=== PATIENT | female | born 1965 | race Caucasian/White ===

== ENCOUNTER 2017-07-08 23:46 | Emergency (ER) | payer SELFPAY ==
--- NOTE | 2017-07-09 00:43 | EDM.PDOC ---
ED HPI GENERAL MEDICAL PROBLEM - General Stated Complaint: EYE PROBLEM Time Seen by Provider: 07/08/17 23:48 Source of Information: Reports: Patient History Limitations: Reports: No Limitations - History of Present Illness INITIAL COMMENTS - FREE TEXT/NARRATIVE: Patient is a 52 year old woman who had her eye scratched by her pet housecat right before she came into the ED. The pain is at a 7/10 if she opens the eye and light makes the pain worse. If she closes the eye the pain goes down to 4/ 10. No other complaints. Onset: Today Onset Date: 07/08/17 Onset Time: 23:00 Duration: Minutes: (40) Location: Reports: Other (Left eye) Quality: Reports: Sharp Severity: Severe Improves with: Reports: Other (Closing eye and being in a dark place.) Worsens with: Reports: Other (Opening eye and light) Context: Reports: Trauma (Her pet housecat accidently scratched her eye.) Associated Symptoms: Reports: No Other Symptoms - Related Data Allergies Allergy/AdvReac Type Severity Reaction Status Date / Time codeine Allergy Respiratory Verified 07/09/17 00:33 Depression erythromycin base Allergy Rash Verified 07/09/17 00:33 levofloxacin [From Levaquin] Allergy Other Verified 07/09/17 00:33 morphine Allergy Respiratory Verified 07/09/17 00:33 Depression Sulfa (Sulfonamide Allergy Other Verified 07/09/17 00:33 Antibiotics) Home Meds: Home Meds NK [No Known Home Meds] 07/09/17 [History] ED ROS GENERAL - Review of Systems Review Of Systems: See Below Constitutional: Reports: No Symptoms HEENT: Reports: Eye Pain Respiratory: Reports: No Symptoms Cardiovascular: Reports: No Symptoms Endocrine: Reports: No Symptoms GI/Abdominal: Reports: No Symptoms : Reports: No Symptoms Musculoskeletal: Reports: No Symptoms Skin: Reports: No Symptoms Neurological: Reports: No Symptoms Psychiatric: Reports: No Symptoms Hematologic/Lymphatic: Reports: No Symptoms Immunologic: Reports: No Symptoms ED EXAM GENERAL W FULL EYE - Physical Exam Exam: See Below Exam Limited By: No Limitations General Appearance: Alert, WD/WN, No Apparent Distress Eye Exam: Left Eye: Corneal Abrasion (Left lower eye), Vision Changes (See eye exam documented by nursing.), Bilateral Eye: EOMI, Normal Fundi, Normal Inspection, PERRL With Correction: No Eyelids: Bilateral: Normal Appearance Cornea Exam: Left: Corneal Abrasion (4 mm left lower eye) Extraocular Movements: Bilateral: Intact Pupils: Normal Accommodation Pupillary Size: Bilateral: 3 mm Pupillary Reaction: Bilateral: Brisk Anterior Chamber: Bilateral: Normal Appearance Posterior Chamber: Bilateral: Normal Funduscopic Comments: Fluorescein exam was done which easily revealed the corneal abrasion. Ears: Normal External Exam Nose: Normal Inspection, Normal Mucosa, No Blood Throat/Mouth: Normal Inspection, Normal Lips, Normal Teeth, Normal Gums, Normal Oropharynx, Normal Voice, No Airway Compromise Head: Atraumatic, Normocephalic Neck: Normal Inspection, Supple, Non-Tender, Full Range of Motion Respiratory/Chest: No Respiratory Distress, Lungs Clear, Normal Breath Sounds, No Accessory Muscle Use, Chest Non-Tender Cardiovascular: Normal Peripheral Pulses, Regular Rate, Rhythm, No Edema, No Gallop, No JVD, No Murmur, No Rub GI/Abdominal: Normal Bowel Sounds, Soft, Non-Tender, No Organomegaly, No Distention, No Abnormal Bruit, No Mass Back Exam: Normal Inspection, Full Range of Motion, NT Extremities: Normal Inspection, Normal Range of Motion, Non-Tender, Normal Capillary Refill, No Pedal Edema Neurological: Alert, Oriented, CN II-XII Intact, Normal Cognition, Normal Gait, Normal Reflexes, No Motor/Sensory Deficits Psychiatric: Normal Affect, Normal Mood Skin Exam: Warm, Dry, Intact, Normal Color, No Rash Course - Vital Signs Text/Narrative:: Uneventful ED course. Once she got the Tetracaine eyedrops she became more comfortable and the remainder of the exam could proceed. Gentamicin ointment was then placed in the left eye which increased her comfort. She will use one line of Gentamicin ointment in the left eye tid. If she continues to have pain when she awakens in the AM, she will see her card boxer for a more in depth exam for further evaluation and treatment options. Last Recorded V/S: Last Vital Signs Temp 36.5 C 07/08/17 23:46 Pulse 83 07/08/17 23:46 Resp 19 07/08/17 23:46 BP 98/71 07/08/17 23:46 Pulse Ox 100 07/08/17 23:46 Departure - Departure Time of Disposition: 01:05 Disposition: Home, Self-Care 01 Clinical Impression: Corneal abrasion, left - Discharge Information Referrals: Mook David MD [Primary Care Provider] -
[2017-07-09 01:06] VITALS: BP 100/65
== END 2017-07-09 00:36 | disposition home or self-care (01) ==
LOC: FB.ED 23:46
DX: S05.02XA Injury of conjunctiva and corneal abrasion without foreign body, left eye, initial encounter (principal); Z88.6 Allergy status to analgesic agent; Z88.2 Allergy status to sulfonamides; Z88.5 Allergy status to narcotic agent; Z88.1 Allergy status to other antibiotic agents; W55.03XA Scratched by cat, initial encounter; Y92.009 Unspecified place in unspecified non-institutional (private) residence as the place of occurrence of the external cause
CPT/HCPCS: 99283; 99284

== ENCOUNTER 2018-07-13 21:21 | Emergency (ER) | payer OTHER ==
[2018-07-13] MEDS ORDERED: Amoxicillin/Clavulanate K 875-125 MG Tab PO ONE (21:44)
[2018-07-13] MEDS ORDERED: Acetaminophen/HYDROcodone 325-5 MG Tab PO ONE ×2 (21:44→21:45)
--- NOTE | 2018-07-13 21:51 | EDM.PDOC ---
ED HPI GENERAL MEDICAL PROBLEM - General Chief Complaint: ENT Problem Stated Complaint: TOOTHACE Time Seen by Provider: 07/13/18 21:45 Source of Information: Reports: Patient History Limitations: Reports: No Limitations - History of Present Illness INITIAL COMMENTS - FREE TEXT/NARRATIVE: Underwent root canal of left lower tooth in [place], cap broke off. Dentist prescribed Clindamycin and Ibuprofren 2 days ago, pt has been taking as directed. Left lower face began to swell this morning and pain has increased. Onset: Today Location: Reports: Face toothache Pain Score (Numeric/FACES): 7 - Related Data Allergies Allergy/AdvReac Type Severity Reaction Status Date / Time codeine Allergy Respiratory Verified 07/13/18 21:39 Depression erythromycin base Allergy Rash Verified 07/13/18 21:39 levofloxacin [From Levaquin] Allergy Other Verified 07/13/18 21:39 morphine Allergy Respiratory Verified 07/13/18 21:39 Depression Sulfa (Sulfonamide Allergy Other Verified 07/13/18 21:39 Antibiotics) Home Meds: Home Meds Acetaminophen/HYDROcodone [[place] 325-5 MG] 1 - 2 tab PO Q6H PRN #20 tab [Rx] Amoxicillin/Clavulanate K [Augmentin 875-125 MG] 1 tab PO BID #20 tablet [Rx] Ibuprofen 800 mg PO Q6HR 07/13/18 [History] Past Medical History HEENT History: Reports: Impaired Vision [employer] History: Reports: Other Musculoskeletal History: knee surgery Other Endocrine/Metabolic History: low blood sugar - Past Surgical History Other GI Surgeries/Procedures: gastric bypass Social & Family History - Family History Family Medical History: Unobtainable - Tobacco Use Smoking Status *Q: Never Smoker - Caffeine Use Caffeine Use: Reports: None ED ROS ENT - Review of Systems Review Of Systems: ROS reveals no pertinent complaints other than HPI. ED EXAM, ENT - Physical Exam Exam: See Below Exam Limited By: No Limitations General Appearance: Alert Mouth/Throat: Other (tenderness to tooth #21 with surrounding gingival swelling , no fluctuance) Head: Facial Swelling (left lower) Neck: Supple Respiratory/Chest: No Respiratory Distress, Lungs Clear, Normal Breath Sounds Cardiovascular: Regular Rate, Rhythm, No Murmur Back: Full Range of Motion Extremities: Normal Range of Motion Neurological: Alert, Normal Cognition, No Motor/Sensory Deficits Psychiatric: Normal Affect, Normal Mood Skin: Warm, Dry, Intact, Normal Color Lymphatic: No Adenopathy Course - Vital Signs Last Recorded V/S: Last Vital Signs Temp 36.8 C 07/13/18 21:36 Pulse 75 07/13/18 21:36 Resp BP 141/73 H 07/13/18 21:36 Pulse Ox 100 07/13/18 21:36 - Orders/Labs/Meds Orders: Active Orders 24 hr Category Date Time Status Acetaminophen/HYDROcodone [[place] 325-5 MG] Med 07/13/18 21:45 Once 2 tab PO ONETIME ONE Meds: Medications Discontinued Medications Generic Name Dose Route Start Last Admin Trade Name Freq PRN Reason Stop Dose Admin Hydrocodone Bitart/Acetaminophen 2 tab 07/13/18 21:44 [place] 325-5 Mg PO 07/13/18 21:45 ONETIME ONE Amoxicillin/Clavulanate Potassium 1 tab 07/13/18 21:44 Augmentin 875 Mg/125 Mg PO 07/13/18 21:45 ONETIME ONE Departure - Departure Time of Disposition: 21:50 Disposition: Home, Self-Care 01 Condition: Good Clinical Impression: Dental infection - Discharge Information *PRESCRIPTION DRUG MONITORING PROGRAM REVIEWED*: Yes *COPY OF PRESCRIPTION DRUG MONITORING REPORT IN PATIENT REBECA: Not Applicable Prescriptions: Acetaminophen/HYDROcodone [[place] 325-5 MG] 1 - 2 tab PO Q6H PRN #20 tab PRN Reason: Pain Amoxicillin/Clavulanate K [Augmentin 875-125 MG] 1 tab PO BID #20 tablet Instructions: Dental Abscess, [id number] Referrals: PCP,None [Primary Care Provider] - Additional Instructions: Discontinue Clindamycin. Fill prescriptions for Augmentin and [place] and take as directed. Follow up with a dentist in 1-2 days. - My Orders Last 24 Hours: My Active Orders 07/13/18 21:45 Acetaminophen/HYDROcodone [[place] 325-5 MG] 2 tab PO ONETIME ONE - Assessment/Plan Last 24 Hours: My Active Orders 07/13/18 21:45 Acetaminophen/HYDROcodone [[place] 325-5 MG] 2 tab PO ONETIME ONE
[2018-07-13 23:48] VITALS: BP 126/51
== END 2018-07-13 22:11 | disposition home or self-care (01) ==
LOC: FB.ED 21:21
DX: K04.7 Periapical abscess without sinus (principal); Z88.1 Allergy status to other antibiotic agents; Z88.5 Allergy status to narcotic agent; Z88.2 Allergy status to sulfonamides
CPT/HCPCS: 99282; A9270-GY